=== PATIENT | female | born 1970 | race Caucasian/White ===

== ENCOUNTER 2017-09-24 17:55 | Emergency (ER) | payer SELFPAY ==
[~2017-09-24] VITALS: Ht 157.5 cm; Wt 91.2 kg
[~2017-09-24 17:55] MED LIST: MOTRIN800 MG PO; SYNTHROID
[2017-09-24 18:43] LABS: HEMATOCRIT 41.8 % (36.0-46.0); HEMOGLOBIN 14.4 G/DL (11.9-15.5); MCH 30.8 PG (29.0-34.0); MCHC 34.4 G/DL (30.0-36.0); MCV 89.5 FL (83-99); PLATELET COUNT 230 K/uL (156-360); RBC DIS.WIDTH-CV 11.7 % (11.8-14.6); RBC DIS.WIDTH-SD 38.5 % (39-53); RED BLOOD COUNT 4.67 M/uL (3.80-5.20); WHITE BLOOD COUNT 4.6 K/uL (4.1-10.2)
[2017-09-24 18:54] LABS: ALBUMIN 4.4 g/dL (3.2-4.8); CHLORIDE 104 mEq/L (99-109); SODIUM 140 mEq/L (136-147)
[2017-09-24 18:56] LABS: GLUCOSE 91 mg/dL (70-99)
[2017-09-24 18:57] LABS: TOTAL PROTEIN 7.4 g/dL (6.4-8.3)
[2017-09-24 18:58] LABS: TOTAL BILIRUBIN 0.7 mg/dL (0.0-1.0)
[2017-09-24 19:00] LABS: ALKALINE PHOSPHATASE 64 IU/L (3-129); CREATININE 0.7 mg/dL (0.6-1.3); GFR ESTIMATE (CALCULATED) > 59 mL/min/
[2017-09-24 19:01] LABS: UREA NITROGEN (BUN) 12 mg/dL (9-23)
[2017-09-24 19:02] LABS: AST (GOT) 20 IU/L (2-34)
[2017-09-24 19:03] LABS: ALT (GPT) 18 IU/L (3-49)
[2017-09-24 20:29] LABS: APPEARANCE CLEAR ((CLEAR)); BILIRUBIN NEGATIVE; BLOOD NEGATIVE; COLOR YELLOW ((YELLOW)); GLUCOSE (STRIP) NEGATIVE; KETONES 5; LEUKOCYTES SMALL; NITRITE NEGATIVE; PROTEIN (STRIP) NEGATIVE; SPECIFIC GRAVITY 1.008 (1.000-1.030); UROBILINOGEN 0.2 MG/DL (0.2-1.0)
[2017-09-24 20:40] LABS: BACTERIA RARE /HPF; EPITHELIAL CELLS 1+ /HPF; MUCUS NONE SEEN /LPF; RED BLOOD CELLS 0-5 /HPF (0-5); UCUL ADDED? NO; WHITE BLOOD CELLS 0-5 /HPF (0-5)
[2017-09-24] MEDS ORDERED: ZOFRAN ODT8 MG PO (23:05)
[2017-09-24] MEDS ORDERED: BENTYL20 MG PO (23:05)
[2017-09-25] VITALS: BP 112/64
== END 2017-09-25 | disposition home or self-care (01) ==
LOC: EME 17:55
DX: K52.9 Noninfective gastroenteritis and colitis, unspecified (principal); E78.5 Hyperlipidemia, unspecified; E03.9 Hypothyroidism, unspecified; F17.200 Nicotine dependence, unspecified, uncomplicated; Z88.0 Allergy status to penicillin
CPT/HCPCS: 74177; 80053; 81003; 85027; 99281; 99285; J7040